=== PATIENT | male | born 1970 | race Caucasian/White ===

== ENCOUNTER 2022-12-26 12:28 | Emergency (ER) | payer OTHER ==
[~2022-12-26] VITALS: Ht 185.4 cm; Wt 111.8 kg
[2022-12-26] MEDS ORDERED: SODIUM CHLORIDE 0.9% 1,000 ML IV ONE (13:45)
[2022-12-26 14:09] LABS: Basophils # (auto) 0.1 10 ^3/uL (0-0.2); Basophils % (auto) 1.4 % (0.0-2.0); Eosinophils # (auto) 0.3 10 ^3/uL (0-0.8); Eosinophils % (auto) 4.1 % (0.0-7.0); Hematocrit 49.8 % (41.0-53.0); Hemoglobin 16.9 g/dL (13.5-17.5); Lymphocytes # (auto) 1.8 10 ^3/uL (0.4-5.4); Mean Corpuscular Hemoglobin 28.5 pg (28.0-32.0); Mean Corpuscular Hgb Conc. 33.9 g/dL (32.0-36.0); Monocytes # (auto) 0.4 10 ^3/uL (0-1.3); Monocytes % (auto) 5.3 % (0.0-12.0); Neutrophils # (auto) 5.3 10 ^3/uL (1.6-8.6); Neutrophils % (auto) 66.2 % (37.0-80.0); Nucleated Red Blood Cells % 1.4 %; Red Blood Cells 5.93 10^6/uL (4.5-5.90); Red Cell Distribution Width 14.4 % (11.8-14.3)
[2022-12-26 14:32] LABS: Alanine Aminotransferase 39 U/L (7-40); Albumin 4.7 g/dL (3.2-4.8); Alkaline Phosphatase 70 U/L (46-116); Anion Gap 5 (5-15); Aspartate Aminotransferase 20 U/L (13-40); BUN/Creatinine Ratio 8.9 (10.0-20.0); Bilirubin, Total 0.7 mg/dL (0.2-1.0); Blood Urea Nitrogen 16 mg/dL (9-23); Calcium 9.6 mg/dL (8.7-10.4); Carbon Dioxide 28 mmol/L (20-30); Chloride 106 mmol/L (98-107); Glucose 102 mg/dL (74-106); Magnesium 2.3 mg/dL (1.6-2.6); Potassium 4.5 mmol/L (3.5-5.1); Sodium 139 mmol/L (136-145); Total Protein 7.4 g/dL (5.7-8.2)
[2022-12-26 18:21] VITALS: TEMP 97.5
[2022-12-26] MEDS ORDERED: LABETALOL HCL 5 MG/ML 4ML SYRINGE IV ONE (19:45)
[2022-12-26] MEDS ORDERED: NEBI5TAB12 PO (21:33)
[2022-12-26] MEDS ORDERED: OLME40TA78 PO (21:33)
[2022-12-26] MEDS ORDERED: AMLO1TAB22 PO (21:33)
[2022-12-26 21:59] VITALS: BP 155/99
[2022-12-26 22:00] VITALS: PULSE 61; RESP 16; O2SAT 99
== END 2022-12-26 22:50 | disposition home or self-care (01) ==
LOC: ER 12:28 → EDBD 12:28 → ER 22:07
DX: I12.9 Hypertensive chronic kidney disease with stage 1 through stage 4 chronic kidney disease, or unspecified chronic kidney disease (principal); N18.9 Chronic kidney disease, unspecified; Z98.890 Other specified postprocedural states; Z88.8 Allergy status to other drugs, medicaments and biological substances; Z79.899 Other long term (current) drug therapy
CPT/HCPCS: 36415; 71046; 80053; 83735; 84443; 84484; 85025; 85379; 93005; 96374; 99285; J3490

== ENCOUNTER 2023-06-15 12:00 | Inpatient (IN) | payer MEDICAID, OTHER ==
[~2023-06-15] VITALS: Ht 193 cm; Wt 114.8 kg
[~2023-06-15 12:00] MED LIST: AMLO1TAB22 PO; NEBI5TAB12 PO; OLME40TA78 PO
[2023-06-15] MEDS ORDERED: HYDR25TA5 GT (12:40)
[2023-06-15] MEDS ORDERED: CLON0.1T PO (12:40)
[2023-06-15] MEDS ORDERED: ALL100T PO (12:40)
[2023-06-15] MEDS ORDERED: DOXA2TAB84 PO (12:40)
[2023-06-15] MEDS ORDERED: ATOR20TA50 PO (12:40)
[2023-06-15] MEDS ORDERED: AMLO1TAB23 PO (12:40)
[2023-06-15] MEDS ORDERED: OLME40TA78 PO (12:40)
[2023-06-15 12:52] LABS: Basophils # (auto) 0.1 10 ^3/uL (0-0.2); Basophils % (auto) 1.1 % (0.0-2.0); Eosinophils # (auto) 0.2 10 ^3/uL (0-0.8); Eosinophils % (auto) 1.9 % (0.0-7.0); Hematocrit 44.9 % (41.0-53.0); Hemoglobin 15.3 g/dL (13.5-17.5); Lymphocytes # (auto) 2.1 10 ^3/uL (0.4-5.4); Lymphocytes % (auto) 22.6 % (10.0-50.0); Mean Corpuscular Hemoglobin 29.6 pg (28.0-32.0); Mean Corpuscular Hgb Conc. 34.1 g/dL (32.0-36.0); Mean Corpuscular Volume 86.7 fL (80.0-100.0); Monocytes # (auto) 0.5 10 ^3/uL (0-1.3); Monocytes % (auto) 5.9 % (0.0-12.0); Neutrophils # (auto) 6.3 10 ^3/uL (1.6-8.6); Neutrophils % (auto) 68.5 % (37.0-80.0); Red Blood Cells 5.18 10^6/uL (4.5-5.90); Red Cell Distribution Width 14.6 % (11.8-14.3); White Blood Cell 9.1 10^3/uL (4.4-10.8)
[2023-06-15] MEDS: SODIUM CHLORIDE 0.9% 1,000 ML IV ONE (12:54)
[2023-06-15 13:02] LABS: Chloride 109 mmol/L (98-107); Potassium 5.3 mmol/L (3.5-5.1); Sodium 141 mmol/L (136-145)
[2023-06-15 13:03] LABS: Anion Gap 6 (5-15); Carbon Dioxide 26 mmol/L (20-30)
[2023-06-15 13:04] LABS: Calcium 9.3 mg/dL (8.5-10.1)
[2023-06-15 13:08] LABS: Glucose 115 mg/dL (74-106)
[2023-06-15 13:09] LABS: BUN/Creatinine Ratio 10.1 (10.0-20.0); Blood Urea Nitrogen 35 mg/dL (9-23)
[2023-06-15 13:20] VITALS: PULSE 68; RESP 20; O2SAT 96
[2023-06-15] MEDS ORDERED: DOCUSATE SOD 100 MG CAP PO PRN (14:45)
[2023-06-15] MEDS ORDERED: ACETAMINOPHEN 325 MG TAB PO PRN (14:45)
[2023-06-15] MEDS ORDERED: ONDANSETRON HCL 4 MG/2 ML VIAL IV PRN (14:45)
[2023-06-15] MEDS: LACTATED RINGER'S 1,000 ML IV SCH (15:25)
[2023-06-15 19:30] VITALS: PULSE 87; RESP 18; O2SAT 98
[2023-06-15] MEDS: SODIUM CHLOR 0.9% PF (SALINE LOCK) 10ML VIAL/SYR IV SCH (22:00)
[2023-06-16 01:16] LABS: Urine Bacteria None Seen /hpf (None Seen)
[2023-06-16 01:33] LABS: Urine Blood Negative /uL (Negative); Urine Clarity Clear (Clear); Urine Color Light-Yellow (Yellow); Urine Protein, UAD Negative (Negative); Urine Specific Gravity 1.015 (1.001-1.035); Urine Urobilinogen Normal (Negative); Urine WBC <1 /hpf (0 - 3)
[2023-06-16 08:15] VITALS: PULSE 83; RESP 14; O2SAT 95
[2023-06-16] MEDS: ENOXAPARIN SOD 40 MG/0.4 ML SYRINGE SC SCH (10:00)
[2023-06-16 10:52] LABS: Basophils # (auto) 0.1 10 ^3/uL (0-0.2); Basophils % (auto) 1.2 % (0.0-2.0); Eosinophils # (auto) 0.2 10 ^3/uL (0-0.8); Eosinophils % (auto) 1.9 % (0.0-7.0); Hematocrit 44.3 % (41.0-53.0); Lymphocytes % (auto) 22.7 % (10.0-50.0); Mean Corpuscular Hemoglobin 29.3 pg (28.0-32.0); Mean Corpuscular Hgb Conc. 33.9 g/dL (32.0-36.0); Mean Corpuscular Volume 86.4 fL (80.0-100.0); Monocytes # (auto) 0.4 10 ^3/uL (0-1.3); Monocytes % (auto) 4.9 % (0.0-12.0); Neutrophils # (auto) 6.2 10 ^3/uL (1.6-8.6); Neutrophils % (auto) 69.3 % (37.0-80.0); Nucleated Red Blood Cells % 0.3 %; Red Blood Cells 5.13 10^6/uL (4.5-5.90); Red Cell Distribution Width 14.6 % (11.8-14.3); White Blood Cell 8.9 10^3/uL (4.4-10.8)
[2023-06-16 11:13] LABS: Alanine Aminotransferase 41 U/L (7-40); Albumin 4.1 g/dL (3.2-4.8); Alkaline Phosphatase 69 U/L (46-116); Anion Gap 5 (5-15); Aspartate Aminotransferase 16 U/L (13-40); BUN/Creatinine Ratio 10.5 (10.0-20.0); Calcium 9.6 mg/dL (8.7-10.4); Carbon Dioxide 25 mmol/L (20-30); Chloride 109 mmol/L (98-107); Glucose 98 mg/dL (74-106); Potassium 4.5 mmol/L (3.5-5.1); Sodium 139 mmol/L (136-145)
[2023-06-16 11:14] LABS: Bilirubin, Total 0.6 mg/dL (0.2-1.0); Total Protein 6.8 g/dL (5.7-8.2)
[2023-06-16 11:16] LABS: Blood Urea Nitrogen 25 mg/dL (9-23)
[2023-06-16] MEDS ORDERED: DEXTROSE (50%) 50ML SYRG IV PRN (14:45)
[2023-06-16] MEDS: InsuLIN REG 1unit/0.01ml Soln (100units/ml) SC SCH (17:41)
[2023-06-16] MEDS: ACCU-CHEK COMFORT CURVE STRIP VI SCH (17:41)
[2023-06-16 18:00] VITALS: PULSE 82
[2023-06-16 18:03] VITALS: BP 152/84; PULSE 89; RESP 18; TEMP 97.7
[2023-06-16 18:07] VITALS: BP 154/84; PULSE 89; RESP 18; TEMP 97.7; O2SAT 96
[2023-06-16 19:37] LABS: Hepatitis C Antibody Negative (Negative)
[2023-06-16 19:44] LABS: Hepatitis B Surface Antigen Negative (Negative)
[2023-06-16 20:00] VITALS: BP 145/90; PULSE 81; PULSE 88; RESP 20; TEMP 98; O2SAT 96
[2023-06-16 21:00] VITALS: BP 145/90; PULSE 81; RESP 20; TEMP 98; O2SAT 96
[2023-06-17] VITALS (7 sets, daily range): BP systolic 134–152; BP diastolic 87–98; PULSE 69–90; RESP 14–18; TEMP 97.6–98.2; O2SAT 94–99
[2023-06-17 05:57] LABS: Basophils # (auto) 0.1 10 ^3/uL (0-0.2); Basophils % (auto) 1.5 % (0.0-2.0); Eosinophils # (auto) 0.2 10 ^3/uL (0-0.8); Eosinophils % (auto) 2.1 % (0.0-7.0); Hematocrit 44.6 % (41.0-53.0); Lymphocytes # (auto) 2.5 10 ^3/uL (0.4-5.4); Lymphocytes % (auto) 28.5 % (10.0-50.0); Mean Corpuscular Hgb Conc. 33.7 g/dL (32.0-36.0); Mean Corpuscular Volume 86.1 fL (80.0-100.0); Monocytes # (auto) 0.5 10 ^3/uL (0-1.3); Monocytes % (auto) 5.1 % (0.0-12.0); Neutrophils # (auto) 5.6 10 ^3/uL (1.6-8.6); Neutrophils % (auto) 62.8 % (37.0-80.0); Nucleated Red Blood Cells % 0.2 %; Red Blood Cells 5.18 10^6/uL (4.5-5.90); Red Cell Distribution Width 14.4 % (11.8-14.3); White Blood Cell 8.9 10^3/uL (4.4-10.8)
[2023-06-17 06:06] LABS: Anion Gap 8 (5-15); Calcium 9.8 mg/dL (8.5-10.1); Carbon Dioxide 24 mmol/L (20-30); Chloride 108 mmol/L (98-107); Potassium 4.7 mmol/L (3.5-5.1); Sodium 140 mmol/L (136-145)
[2023-06-17 06:12] LABS: BUN/Creatinine Ratio 15.3 (10.0-20.0); Blood Urea Nitrogen 31 mg/dL (9-23); Cholesterol 125 mg/dL (< 200); Glucose 94 mg/dL (74-106); Triglycerides 154 mg/dL (< 150)
[2023-06-17 06:13] LABS: LDL Cholesterol 65 mg/dL (< 100)
[2023-06-17 06:14] LABS: HDL Cholesterol 30 mg/dL (40-59)
[2023-06-17] MEDS: ASPirin 81 mg TAB PO SCH (09:32)
[2023-06-17] MEDS ORDERED: hydrALAZINE HCL 20 MG/ML VL IV PRN (14:30)
== END 2023-06-17 18:46 | disposition home or self-care (01) | DRG 422 ==
LOC: EDBD 12:00 → ER 12:00 → TELE 14:42 → TELE-CENTR 06-16 17:50
PROVIDERS: ADMIT Nurse Practitioner; ATTEND Nurse Practitioner
DX: E86.0 Dehydration (principal); N17.0 Acute kidney failure with tubular necrosis; I95.9 Hypotension, unspecified; I13.11 Hypertensive heart and chronic kidney disease without heart failure, with stage 5 chronic kidney disease, or end stage renal disease; E11.22 Type 2 diabetes mellitus with diabetic chronic kidney disease; E78.5 Hyperlipidemia, unspecified; E66.9 Obesity, unspecified; N18.5 Chronic kidney disease, stage 5; Z82.49 Family history of ischemic heart disease and other diseases of the circulatory system; Z87.891 Personal history of nicotine dependence; Z88.0 Allergy status to penicillin; Z90.49 Acquired absence of other specified parts of digestive tract; Z68.30 Body mass index [BMI] 30.0-30.9, adult
CPT/HCPCS: 36415; 70450; 70551; 71045; 76775; 80048; 80053; 80061; 81001; 82962; 83036; 83605; 83880; 84484; 85025; 86803; 87040; 87340; 93005; 93306; 93886; 96361; 96374; G0378